=== PATIENT | male | born 1960 | race Caucasian/White ===

== ENCOUNTER 2017-03-25 00:36 | Emergency (ER) | payer OTHER ==
[~2017-03-25] VITALS: Ht 170.2 cm; Wt 116.1 kg
[2017-03-25 00:51] VITALS: Ht 170.2 cm; Wt 116.1 kg
[2017-03-25 02:17] LABS: BASOPHIL % 0.8 % (0-2); CALCIUM 9.1 mg/dL (8.5-10.1); CARBON DIOXIDE 27.8 mmol/L (21-32); CHLORIDE SERUM 101 mmol/L (98-107); CREATININE SERUM 0.9 mg/dL (0.7-1.3); GFR1 > 60 mL/min; GLUCOSE SERUM 391 mg/dL (74-106); PLATELET COUNT 231 x10^3mcL (130-400); POTASSIUM SERUM 3.9 mmol/L (3.5-5.1); RED CELL DISTRIBUTION WIDTH 13.6 % (11.5-14.5); SODIUM SERUM 138 mmol/L (136-145)
[2017-03-25 02:28] LABS: ALBUMIN 3.5 g/dL (3.4-5.0); ALKALINE PHOSPHATASE 117 U/L (46-116); ALT/SGPT 34 U/L (16-63); AST/SGOT 21 U/L (15-37); BILIRUBIN TOTAL 0.4 mg/dL (0.20-1.00); CHOLESTEROL 128 mg/dL (<200); HDL CHOLESTEROL 36 mg/dL (40-60); TOTAL PROTEIN, SERUM 7.4 g/dL (6.4-8.2)
[2017-03-25 04:51] VITALS: BP 140/79
== END 2017-03-25 04:51 | disposition home or self-care (01) ==
LOC: ED 00:36
PROVIDERS: Emergency Medicine
DX: J06.9 Acute upper respiratory infection, unspecified (principal); J04.0 Acute laryngitis; F17.200 Nicotine dependence, unspecified, uncomplicated; I10 Essential (primary) hypertension; E11.9 Type 2 diabetes mellitus without complications; Z71.6 Tobacco abuse counseling
CPT/HCPCS: 36415; 83880; 87804; 99406; J2930; J7613; Q0092

== ENCOUNTER 2018-06-15 08:47 | Emergency (ER) | payer OTHER ==
[~2018-06-15] VITALS: Ht 170.2 cm; Wt 101.2 kg
[2018-06-15 08:53] VITALS: Ht 170.2 cm; Wt 101.2 kg
[2018-06-15 11:04] VITALS: BP 155/71
== END 2018-06-15 11:04 | disposition home or self-care (01) ==
LOC: ED 08:47
DX: J45.901 Unspecified asthma with (acute) exacerbation (principal); E11.65 Type 2 diabetes mellitus with hyperglycemia; F17.200 Nicotine dependence, unspecified, uncomplicated; I10 Essential (primary) hypertension
CPT/HCPCS: 82962; 99406; J0696; J7512; J7613; Q0092